=== PATIENT | female | born 1990 | race Caucasian/White ===

== ENCOUNTER 2017-04-16 22:35 | Emergency (ER) | payer SELFPAY ==
[~2017-04-16] VITALS: Ht 147.3 cm; Wt 72.0 kg
[2017-04-16 22:51] VITALS: BP 132/73
== END 2017-04-16 23:23 | disposition home or self-care (01) ==
LOC: EMS 22:37
DX: K08.89 Other specified disorders of teeth and supporting structures (principal); R03.0 Elevated blood-pressure reading, without diagnosis of hypertension; Z88.5 Allergy status to narcotic agent
CPT/HCPCS: 99283